=== PATIENT | female | born 1995 ===

== ENCOUNTER 2018-03-30 11:43 | Emergency (ER) | payer MEDICAID ==
[2018-03-30 11:47] VITALS: BP 139/80; PULSE 102; TEMP 97; BMI 27.3
[2018-03-30 11:53] VITALS: O2SAT 98
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
== END 2018-03-30 13:25 | disposition left against medical advice (07) ==
LOC: H.ER 11:43
DX: Z04.6 Encounter for general psychiatric examination, requested by authority (principal)

== ENCOUNTER 2018-05-03 17:17 | Emergency (ER) | payer OTHER ==
[2018-05-03 17:18] VITALS: BMI 27.3
[2018-05-03 17:23] VITALS: BP 137/80; PULSE 71; RESP 16; TEMP 98; O2SAT 100
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
== END 2018-05-03 20:21 | disposition home or self-care (01) ==
LOC: H.ER 17:17
DX: F43.20 Adjustment disorder, unspecified (principal); I10 Essential (primary) hypertension

== ENCOUNTER 2018-06-22 06:07 | Emergency (ER) | payer MEDICAID ==
[2018-06-22 06:07] VITALS: BMI 27.3
[2018-06-22 06:15] VITALS: BP 132/88; RESP 16; TEMP 98
--- NOTE | 2018-06-22 06:31 | ED PDOC ---
HPI: Psych/Substance Abuse Time Seen by Provider: 06/22/18 06:12 Chief Complaint (Nursing): Psychiatric Evaluation Chief Complaint (Provider): Homeless History Per: Patient History/Exam Limitations: no limitations Onset/Duration Of Symptoms: Days (2 weeks) Additional Complaint(s): Pt. homeless for 2 weeks. Has no family or anywhere to go so came to the Er to speak to someone about it. Not suicidal or homicidal. No drugs, etoh. No injury. No pain. Past Medical History Reviewed: Nursing Documentation, Vital Signs Vital Signs: Last Vital Signs Temp 98 F 06/22/18 06:12 Pulse 104 H 06/22/18 06:12 Resp 16 06/22/18 06:12 BP 132/88 06/22/18 06:12 Pulse Ox 98 06/22/18 06:12 - Medical History PMH: Asthma - Surgical History Surgical History: (x1) - Family History Family History: States: Unknown Family Hx - Social History Current smoker - smoking cessation education provided: Yes - Home Medications Home Medications: Ambulatory Orders Medication Instructions Recorded Albuterol HFA [Ventolin HFA 90 2 puff INH PRN PRN 12/12/15 mcg/actuation (8 g)] Ibuprofen [Motrin] 600 mg PO Q6 PRN #15 tab 12/12/15 Sulfamethoxazole/Trimethoprim 1 tab PO BID #14 tab 12/12/15 [Bactrim DS 800 mg-160 mg] Cephalexin [Keflex] 500 mg PO BID #20 capsule 03/03/16 - Allergies Allergies/Adverse Reactions: Allergies Allergy/AdvReac Type Severity Reaction Status Date / Time No Known Allergies Allergy Verified 05/03/18 17:19 Review of Systems ROS Statement: Except As Marked, All Systems Reviewed And Found Negative Psych: Positive for: Depression. Negative for: Suicidal ideation Physical Exam - Reviewed Nursing Documentation Reviewed: Yes Vital Signs Reviewed: Yes - Physical Exam Appears: Positive for: Non-toxic, No Acute Distress Head Exam: Positive for: ATRAUMATIC, NORMAL INSPECTION, NORMOCEPHALIC Skin: Positive for: Normal Color, Warm, DRY Eye Exam: Positive for: EOMI, Normal appearance, PERRL ENT: Positive for: Normal ENT Inspection Neck: Positive for: Normal, Painless ROM Cardiovascular/Chest: Positive for: Regular Rate, Rhythm Respiratory: Positive for: CNT, Normal Breath Sounds Gastrointestinal/Abdominal: Positive for: Normal Exam, Soft. Negative for: Tenderness Back: Positive for: Normal Inspection. Negative for: L CVA Tenderness, R CVA Tenderness Extremity: Positive for: Normal ROM. Negative for: Tenderness Neurologic/Psych: Positive for: Alert, Oriented - ECG O2 Sat by Pulse Oximetry: 98 - Progress ED Course And Treament: 807: Stable. AAOx3. Pain free. Tolerated PO. Fu with pcp. Crisis saw pt. and does not meet criteria for admit. Disposition - Clinical Impression Clinical Impression: Adjustment disorder - Patient ED Disposition Is Patient to be Admitted: No Counseled Patient/Family Regarding: Diagnosis, Need For Followup - Disposition Referrals: [facility] [Outside] [facility] [Outside] Disposition: Routine/Home Disposition Time: 08:08 Condition: STABLE Additional Instructions: Return if not better in 3 days. Instructions: Adjustment Disorder
[2018-06-22 07:29] VITALS: PULSE 89
[2018-06-22 08:10] VITALS: O2SAT 98
== END 2018-06-22 09:16 | disposition home or self-care (01) ==
LOC: H.ER 06:07
DX: F43.20 Adjustment disorder, unspecified (principal); F17.200 Nicotine dependence, unspecified, uncomplicated; J45.909 Unspecified asthma, uncomplicated; Z59.0 Homelessness